=== PATIENT | female | born 1970 | race Native Hawaiian/Other Pacific Islander ===

== ENCOUNTER 2018-04-16 08:01 | Emergency (ER) | payer BC ==
[2018-04-16 08:05] VITALS: BP 148/82; PULSE 66; RESP 18; TEMP 98.3
--- NOTE | 2018-04-16 08:16 | ED ---
General Adult HPI - General Chief complaint: Skin/Abscess/Foreign Body Stated complaint: swollen lip Time Seen by Provider: 04/16/18 08:06 Source: patient, RN notes reviewed Mode of arrival: ambulatory Limitations: no limitations - History of Present Illness Initial comments: Patient 47-year-old female presenting to the emergency room today with a chief complaint of swelling to the left side of the upper lip that started yesterday morning. Patient states that she woke up and there was a small white head which she popped and was able to get some drainage out of. She states as the day went on the left side of the upper lip became more swollen. She does admit that she went to bed hoping that when she would wake up the swelling would be improved. She states swelling to same at this time. She states she's never had anything similar to this in the past. She denies any other home medications other than Vicodin that she uses when needed. Patient denies any other complaints or symptoms. Patient denies any recent fever, chills, shortness of breath, chest pain, back pain, abdominal pain, nausea or vomiting, headaches or visual changes, or any other complaints. - Related Data Home Medications Medication Instructions Recorded Confirmed HYDROcodone/APAP 7.5-325MG [[place] 1 tab PO Q6HR PRN 07/16/15 07/18/15 7.5-325] Previous Rx's Medication Instructions Recorded Hydrocodone/Acetaminophen 1 tab PO Q4HR PRN #30 tab 07/18/15 [Hydrocodone/Acetaminophen 7.5-300] Magnesium Hydroxide [Milk of 30 ml PO Q24H PRN #30 ml 07/18/15 Magnesia Concentrate] Sulfamethox-Tmp 800-160Mg [Bactrim 1 tab PO Q12HR #20 tab 04/16/18 DS 800-160 mg] Allergies Allergy/AdvReac Type Severity Reaction Status Date / Time No Known Allergies Allergy Verified 04/16/18 08:05 Review of Systems ROS Statement: Those systems with pertinent positive or pertinent negative responses have been documented in the HPI. ROS Other: All systems not noted in ROS Statement are negative. Past Medical History Past Medical History: Blood Disorder Additional Past Medical History / Comment(s): Back Pain, Anemia, gall stones. Obstetric history: She had 4 vaginal deliveries, her youngest is 20 years old. She is now unexpectedly and her first visit will be in 10 days. History of Any Multi-Drug Resistant Organisms: None Reported Past Surgical History: No Surgical Hx Reported Additional Past Surgical History / Comment(s): ELECTIVE . Patient reports 4 pregnancies resulting in live births this is a fifth Past Anesthesia/Blood Transfusion Reactions: No Reported Reaction Additional Past Anesthesia/Blood Transfusion Reaction / Comment(s): no blood transfusion Past Psychological History: No Psychological Hx Reported Smoking Status: Never smoker Past Alcohol Use History: None Reported Past Drug Use History: None Reported - Past Family History Father Family Medical History: Blood Disorder Additional Family Medical History / Comment(s): father with Anemia, stomach cancer Mother Family Medical History: Diabetes Mellitus, Hypertension Additional Family Medical History / Comment(s): mini strokes, General Exam - General Exam Comments Initial Comments: General: The patient is awake and alert, in no distress, and does not appear acutely ill. Eye: There is normal conjunctiva bilaterally. No signs of icterus. Ears, nose, mouth and throat: There are moist mucous membranes and no oral lesions. Neck: The neck is supple, there is no tenderness or JVD. Musculoskeletal: Normal ROM, no tenderness. Neurological: A&O x 3. CN II-XII intact, There are no obvious motor or sensory deficits. Coordination appears grossly intact. Speech is normal. Skin: Skin is warm and dry and no rashes or lesions are noted. Patient does have abscess to the left side of the upper lip. There is a ulcerated area centrally. There is no fluctuant head. Psychiatric: Cooperative, appropriate mood & affect, normal judgment. Limitations: no limitations Course Vital Signs 04/16/18 08:02 Temperature 98.3 F Pulse Rate 66 Respiratory 18 Rate Blood Pressure 148/82 O2 Sat by Pulse 97 Oximetry Medical Decision Making - Medical Decision Making Patient does have abscess to the left side of the upper lip. There is some mild swelling. There is no fluctuant head to drain. Patient was able to drain some of the area yesterday. She be started on antibiotics. She is advised warm compresses. Advised follow family physician in the next 2 days return here to emergency room symptoms increase or worsen. Disposition Clinical Impression: Abscess of lip Disposition: HOME SELF-CARE Condition: Good Instructions: Abscess (ED) Additional Instructions: Please use medication as discussed. Please continue warm compresses as discussed. Please follow-up with family doctor in the next 2 days of symptoms have not improved. Please return to emergency room if the symptoms increase or worsen or for any other concerns. Prescriptions: Sulfamethox-Tmp 800-160Mg [Bactrim DS 800-160 mg] 1 tab PO Q12HR #20 tab Is patient prescribed a controlled substance at d/c from ED?: No Referrals: Harsh Layne MD [Primary Care Provider] - 1-2 days Time of Disposition: 08:15
== END 2018-04-16 08:57 | disposition home or self-care (01) ==
LOC: EC 08:01
DX: K13.0 Diseases of lips (principal)
CPT/HCPCS: 99283

== ENCOUNTER 2019-10-11 23:50 | Emergency (ER) | payer BC ==
[2019-10-12 00:51] LABS: Basophils # (A) 0.1 k/uL (0-0.2); Basophils % (A) 1 %; Eosinophils # (A) 0.4 k/uL (0-0.7); Eosinophils % (A) 7 %; HCT 40.7 % (34.0-46.0); HGB 12.9 gm/dL (11.4-16.0); Lymphocytes # (A) 1.8 k/uL (1.0-4.8); Lymphocytes % (A) 29 %; MCH 28.9 pg (25.0-35.0); MCHC 31.7 g/dL (31.0-37.0); Mean Platelet Volume 8.1; Monocytes # (A) 0.3 k/uL (0-1.0); Monocytes % (A) 5 %; Neutrophils # (A) 3.5 k/uL (1.3-7.7); Neutrophils % (A) 56 %; Platelet Count 296 k/uL (150-450); RBC 4.47 m/uL (3.80-5.40); RDW 12.9 % (11.5-15.5); WBC 6.2 k/uL (3.8-10.6)
[2019-10-12 01:03] LABS: D-Dimer 0.4 mg/L FEU (<0.60); INR 0.9 (<1.2); Partial Thromboplastin Time 23.4 sec (22.0-30.0); Prothrombin Time 9.6 sec (9.0-12.0)
--- NOTE | 2019-10-12 01:04 | ED ---
Chest Pain HPI - General Chief Complaint: Chest Pain Stated Complaint: Chest/Back Pain Time Seen by Provider: 10/12/19 00:23 Source: patient Mode of arrival: ambulatory Limitations: no limitations - History of Present Illness Initial Comments: Mady Das is a pleasant 49-year-old female who presents to the ER today for right-sided chest wall pain. Patient reports that she's had pain in the right- sided chest wall for a couple of days, she states is progressively worsening. She noticed a rash that developed on her breast very tender. Initially she thought it was a heat rash however the amount of discomfort made her concerned. Patient denies any pleuritic chest pain or shortness of breath. Denies any cardiac history. - Related Data Previous Rx's Medication Instructions Recorded Sulfamethox-Tmp 800-160Mg [Bactrim 1 tab PO Q12HR #20 tab 04/16/18 DS 800-160 mg] valACYclovir [Valtrex] 1,000 mg PO TID #21 tab 10/12/19 Allergies Allergy/AdvReac Type Severity Reaction Status Date / Time No Known Allergies Allergy Verified 10/12/19 00:10 Review of Systems ROS Statement: Those systems with pertinent positive or pertinent negative responses have been documented in the HPI. ROS Other: All systems not noted in ROS Statement are negative. EKG Findings - EKG Comments: EKG Findings:: EKG was obtained due to complaint of chest pain, EKG obtained at 12:20 AM, rate is 71 rhythm sinus is normal axis, normal intervals there are no acute ST elevations or depressions no evidence of acute ischemia or infarction Past Medical History Past Medical History: Blood Disorder Additional Past Medical History / Comment(s): Back Pain, Anemia, gall stones. History of Any Multi-Drug Resistant Organisms: MRSA Date of last positivie culture/infection: 12/14/18 MDRO Source:: Nasal Culture Past Surgical History: No Surgical Hx Reported Additional Past Surgical History / Comment(s): ELECTIVE . Patient reports 4 pregnancies resulting in live births this is a fifth Past Anesthesia/Blood Transfusion Reactions: No Reported Reaction Additional Past Anesthesia/Blood Transfusion Reaction / Comment(s): no blood transfusion Past Psychological History: No Psychological Hx Reported Smoking Status: Never smoker Past Alcohol Use History: None Reported Past Drug Use History: None Reported - Past Family History Father Family Medical History: Blood Disorder Additional Family Medical History / Comment(s): father with Anemia, stomach cancer Mother Family Medical History: Diabetes Mellitus, Hypertension Additional Family Medical History / Comment(s): mini strokes, General Exam - General Exam Comments Initial Comments: Physical Exam GENERAL: Patient is well-developed and well-nourished. Patient is nontoxic and well- hydrated and is in no distress. HENT: Normocephalic, Atraumatic. EYES: PERRL, EOMI PULMONARY: Unlabored respirations. No audible rales rhonchi or wheezing was noted. CARDIOVASCULAR: There is a regular rate and rhythm without any murmurs gallops or rubs. ABDOMEN: Soft and nontender with normal bowel sounds. SKIN: Vesicular rash under the right breast in approximately the T5 dermatome, pain radiating around the back following this dermatomal pattern : Deferred NEUROLOGIC: Patient is alert and oriented x3. Moving all extremities spontaneously MUSCULOSKELETAL: Normal extremities with adequate strength and full range of motion. No lower extremity swelling or edema. No calf tenderness. PSYCHIATRIC: Normal psychiatric evaluation. Limitations: no limitations Course Vital Signs 10/12/19 10/12/19 00:06 00:42 Temperature 98.6 F Pulse Rate 72 74 Respiratory 16 18 Rate Blood Pressure 146/82 119/72 O2 Sat by Pulse 98 99 Oximetry Chest Pain MDM - MDM Patient was seen and evaluated, history was obtained from the patient, history and physical exam are concerning for a shingles rash, patient will be started on Valtrex and given Tylenol 3 for treatment Patient was advised to follow-up with primary care for repeat labs as this medication can be hepatotoxic Labs are unremarkable, d-dimer and troponin not elevated Patient will be discharged home with Valtrex, a Tylenol 3 starter pack she did not receive any pain medication emergency department she would like to drive herself home safely Disposition Clinical Impression: Shingles Disposition: HOME SELF-CARE Condition: Stable Instructions (If sedation given, give patient instructions): Shingles (ED) Prescriptions: valACYclovir [Valtrex] 1,000 mg PO TID #21 tab Is patient prescribed a controlled substance at d/c from ED?: No Referrals: aTta Lambert DO [Primary Care Provider] - 1-2 days
--- NOTE | 2019-10-12 01:15 | XR ---
EXAMINATION TYPE: XR chest 2V DATE OF EXAM: 10/12/2019 COMPARISON: NONE HISTORY: Chest pain TECHNIQUE: 2 views FINDINGS: Heart and mediastinum are normal. Lungs are clear. Diaphragm is normal. Bony thorax is inta ct. There are chest leads. IMPRESSION: Normal chest.
[2019-10-12 01:16] LABS: ALT 18 U/L (4-34); AST 20 U/L (14-36); African American GFR (CKD) >90 (>60 ml/min/1.73 sqM); Albumin 4.4 g/dL (3.5-5.0); Alkaline Phosphatase 139 U/L (38-126); Anion Gap 12 mmol/L; Blood Urea Nitrogen 10 mg/dL (7-17); Calcium 9.8 mg/dL (8.4-10.2); Carbon Dioxide 21 mmol/L (22-30); Chloride 103 mmol/L (98-107); Glucose 338 mg/dL (74-99); Magnesium 2.1 mg/dL (1.6-2.3); Non-African American GFR(CKD) >90 (>60 ml/min/1.73 sqM); Potassium 3.7 mmol/L (3.5-5.1); Sodium 136 mmol/L (137-145); Total Bilirubin 0.4 mg/dL (0.2-1.3); Total Protein 7.8 g/dL (6.3-8.2)
[2019-10-12] MEDS ORDERED: ACET/COD 300 MG/30 MG STARTER PACK 6 TAB BTL PO STA (01:16)
[2019-10-12] MEDS ORDERED: valACYclovir 500 MG TAB PO ONE (01:30)
[2019-10-12] MEDS ORDERED: Acetaminophen-Codeine 300-30mg TAB PO STA (01:36)
[2019-10-13 09:46] VITALS: BP 118/67; PULSE 74; RESP 18; TEMP 98.3
== END 2019-10-12 02:05 | disposition home or self-care (01) ==
LOC: EC 23:50
DX: B02.9 Zoster without complications (principal); R07.89 Other chest pain; Z86.14 Personal history of Methicillin resistant Staphylococcus aureus infection
CPT/HCPCS: 36415; 71046; 80053; 83735; 84484; 85025; 85379; 85610; 85730; 93005; 99285

== ENCOUNTER 2020-01-13 15:02 | Emergency (ER) | payer BC, OTHER ==
[2020-01-13 15:43] LABS: Glucose,Whole Blood 93 mg/dL (75-99)
[2020-01-13 15:45] LABS: Basophils % (A) 0 %; Eosinophils # (A) 0.2 k/uL (0-0.7); Eosinophils % (A) 3 %; HCT 45.6 % (34.0-46.0); HGB 15.1 gm/dL (11.4-16.0); Lymphocytes # (A) 1.8 k/uL (1.0-4.8); Lymphocytes % (A) 19 %; MCH 29.9 pg (25.0-35.0); MCHC 33.1 g/dL (31.0-37.0); MCV 90.4 fL (80.0-100.0); Mean Platelet Volume 7.5; Monocytes # (A) 0.3 k/uL (0-1.0); Monocytes % (A) 4 %; Neutrophils # (A) 6.7 k/uL (1.3-7.7); Neutrophils % (A) 73 %; Platelet Count 320 k/uL (150-450); RBC 5.05 m/uL (3.80-5.40); RDW 12.8 % (11.5-15.5); WBC 9.1 k/uL (3.8-10.6)
[2020-01-13 15:59] LABS: Appearance,Urine Clear (Clear); Bilirubin,Urine Negative (Negative); Blood,Urine Negative (Negative); Color,Urine Yellow; Glucose,Urine (UA) 4+ (Negative); Leukocyte Esterase,Urine Negative (Negative); Nitrite,Urine Negative (Negative); PH, Urine 5.5 (5.0-8.0); Protein,Urine Trace (Negative); Urobilinogen,Urine <2.0 mg/dL (<2.0)
[2020-01-13] MEDS ORDERED: ONDANSETRON 4 MG/2 ML VIAL IVP STA (16:02)
[2020-01-13] MEDS ORDERED: PANTOPRAZOLE 40 MG/10 ML VIAL IVP STA (16:02)
[2020-01-13 16:03] LABS: ALT 17 U/L (4-34); AST 24 U/L (14-36); African American GFR (CKD) >90 (>60 ml/min/1.73 sqM); Albumin 4.8 g/dL (3.5-5.0); Alkaline Phosphatase 105 U/L (38-126); Amylase 42 U/L (30-110); Anion Gap 14 mmol/L; Blood Urea Nitrogen 13 mg/dL (7-17); Calcium 10.1 mg/dL (8.4-10.2); Carbon Dioxide 21 mmol/L (22-30); Chloride 104 mmol/L (98-107); Glucose 105 mg/dL (74-99); Non-African American GFR(CKD) >90 (>60 ml/min/1.73 sqM); Potassium 4.3 mmol/L (3.5-5.1); Sodium 139 mmol/L (137-145); Total Bilirubin 0.8 mg/dL (0.2-1.3); Total Protein 8.7 g/dL (6.3-8.2)
[2020-01-13 16:08] LABS: Ketones,Urine 4+ (Negative)
--- NOTE | 2020-01-13 16:48 | XR ---
EXAMINATION TYPE: XR abdomen acute w cxr DATE OF EXAM: 01/13/2020 COMPARISON: 05/30/2015 HISTORY: Nausea and vomiting TECHNIQUE: 4 views FINDINGS: Heart and mediastinum are normal. Lungs are clear. Diaphragm is normal. Bowel gas pattern i s normal. There is no sign of intestinal obstruction or pneumoperitoneum. Fecal pattern is normal. Th ere are phleboliths in the pelvis on the left side. There is no evidence of a mass. There are no path ologic calcifications over the kidneys. IMPRESSION: Normal chest. Nonacute abdomen. No adverse change.
[2020-01-13] MEDS ORDERED: SODIUM CHLORIDE 0.9% 1,000 ML IV ONE (17:56)
--- NOTE | 2020-01-13 19:10 | ED ---
Abdominal Pain HPI - General Chief Complaint: Abdominal Pain Stated Complaint: Nausea,Dizziness,Vomiting Time Seen by Provider: 01/13/20 15:18 Source: patient Mode of arrival: ambulatory Limitations: no limitations - History of Present Illness Initial Comments: This is a 49-year-old type II diabetic who is [id number] presented to the emergency department today for chief complaint of possible medication reaction. Patient states that she was supposed to start oxympic about a year ago, it was prescribed as a weekly injection however she did not want to do this so she didnt do it. She saw her pcp in October and was instead prescribed Synjardy an oral medications that she has been taking without side effects. Patient states that she put herself on ozympic Wednesday of this past week giving one SQ injection because she thought it would further help her DM management, She states it was the medications that she has had for a year. Patient states that since his injection she has had nausea diarrhea vomiting cramping of the abdomen diffusely and at times lightheaded. She states that her stools look slightly darker than normal. She denies any localizing abdominal pain. She denies any alcohol abuse bright red stools. Patient denies any hematemesis. Patient states she placed she is having a medication reaction. Patietn states that she hasnt been able to eat much since Wednesday secondary to the above symptoms. Patient denies chest pain, SOB, headaches, fevers ,or URI symptoms. She appears nontoxic on arrival but did have 1 episode of vomiting durin ghistory taking. - Related Data Previous Rx's Medication Instructions Recorded Sulfamethox-Tmp 800-160Mg [Bactrim 1 tab PO Q12HR #20 tab 04/16/18 DS 800-160 mg] valACYclovir [Valtrex] 1,000 mg PO TID #21 tab 10/12/19 Ondansetron Odt [Zofran Odt] 4 mg PO Q8HR PRN 3 Days #9 tab 01/13/20 Allergies Allergy/AdvReac Type Severity Reaction Status Date / Time No Known Allergies Allergy Verified 01/13/20 15:11 Review of Systems ROS Statement: Those systems with pertinent positive or pertinent negative responses have been documented in the HPI. ROS Other: All systems not noted in ROS Statement are negative. Past Medical History Past Medical History: Blood Disorder Additional Past Medical History / Comment(s): Back Pain, Anemia, gall stones. Obstetric history: She had 4 vaginal deliveries, her youngest is 20 years old. She is now unexpectedly and her first visit will be in 10 days. History of Any Multi-Drug Resistant Organisms: MRSA Date of last positivie culture/infection: 12/14/18 MDRO Source:: Nasal Culture Past Surgical History: No Surgical Hx Reported Additional Past Surgical History / Comment(s): ELECTIVE . Patient reports 4 pregnancies resulting in live births this is a fifth Past Anesthesia/Blood Transfusion Reactions: No Reported Reaction Additional Past Anesthesia/Blood Transfusion Reaction / Comment(s): no blood transfusion Past Psychological History: No Psychological Hx Reported Smoking Status: Never smoker Past Alcohol Use History: None Reported Past Drug Use History: None Reported - Past Family History Father Family Medical History: Blood Disorder Additional Family Medical History / Comment(s): father with Anemia, stomach cancer Mother Family Medical History: Diabetes Mellitus, Hypertension Additional Family Medical History / Comment(s): mini strokes, General Exam - General Exam Comments Initial Comments: General: The patient is awake and alert, in no distress Eye: Pupils are equal, round and reactive to light, extra-ocular movements are intact. No nystagmus. There is normal conjunctiva bilaterally. No signs of icterus. Ears, nose, mouth and throat: There are dry mucous membranes and no oral lesions. Neck: The neck is supple, there is no tenderness or JVD. Cardiovascular: There is a regular rate and rhythm. No murmur, rub or gallop is appreciated. Respiratory: Lungs are clear to auscultation, respirations are non-labored, breath sounds are equal. No wheezes, stridor, rales, or rhonchi. Gastrointestinal: Soft, non-distended, non-tender abdomen without masses or organomegaly noted. There is no rebound or guarding present. Musculoskeletal: Normal ROM, no tenderness. Strength 5/5. Sensation intact. Pulses equal bilaterally 2+. Neurological: A&O x 3. CN II-XII intact grossy, There are no obvious motor or sensory deficits. Coordination appears grossly intact. Speech is normal. Skin: Skin is warm and dry and no rashes or lesions are noted. Psychiatric: Cooperative, appropriate mood & affect, normal judgment. Limitations: no limitations Course Vital Signs 01/13/20 01/13/20 01/13/20 15:07 18:28 19:21 Temperature 97.8 F 97.7 F Pulse Rate 91 86 74 Respiratory 18 16 18 Rate Blood Pressure 123/77 124/76 129/74 O2 Sat by Pulse 98 99 97 Oximetry Procedures - [place] Protocol (Time Out) Nurse: Michell Matias Medical Decision Making - Medical Decision Making Labs reviewed by attending provider Dr. Rhodes, at this time patient nausea controlled, felt ketosis is secondary to starvation. Patient has elevation of gap, which is felt to be a due to starvation rather than elevated blood glucose. patient acetone (-). VS stable she appears nontoxic. Patient hydrated and state she is ready to go home. My attending and I feel symptoms most likely secondary to medications taken wednesdayvne history. No localizing abdominal pain, fevers. Patient agreeble to discharge with discontinuation of medication and pcp f/u. Val prescribed outpatient and she was discharged [facility]. - Lab Data Result diagrams: 01/13/20 15:27 01/13/20 15:27 Lab Results 01/13/20 01/13/20 01/13/20 Range/Units 15:27 15:27 15:27 WBC 9.1 (3.8-10.6) k/uL RBC 5.05 (3.80-5.40) m/uL Hgb 15.1 (11.4-16.0) gm/dL Hct 45.6 (34.0-46.0) % MCV 90.4 (80.0-100.0) fL MCH 29.9 (25.0-35.0) pg MCHC 33.1 (31.0-37.0) g/dL RDW 12.8 (11.5-15.5) % Plt Count 320 (150-450) k/uL Neutrophils % 73 % Lymphocytes % 19 % Monocytes % 4 % Eosinophils % 3 % Basophils % 0 % Neutrophils # 6.7 (1.3-7.7) k/uL Lymphocytes # 1.8 (1.0-4.8) k/uL Monocytes # 0.3 (0-1.0) k/uL Eosinophils # 0.2 (0-0.7) k/uL Basophils # 0.0 (0-0.2) k/uL Sodium 139 (137-145) mmol/L Potassium 4.3 (3.5-5.1) mmol/L Chloride 104 (98-107) mmol/L Carbon Dioxide 21 L (22-30) mmol/L Anion Gap 14 mmol/L BUN 13 (7-17) mg/dL Creatinine 0.66 (0.52-1.04) mg/dL Est GFR (CKD-EPI)AfAm >90 (>60 ml/min/1.73 sqM) Est GFR (CKD-EPI)NonAf >90 (>60 ml/min/1.73 sqM) Glucose 105 H (74-99) mg/dL POC Glucose (mg/dL) (75-99) mg/dL POC Glu [employer] ID Calcium 10.1 (8.4-10.2) mg/dL Total Bilirubin 0.8 (0.2-1.3) mg/dL AST 24 (14-36) U/L ALT 17 (4-34) U/L Alkaline Phosphatase 105 (38-126) U/L Total Protein 8.7 H (6.3-8.2) g/dL Albumin 4.8 (3.5-5.0) g/dL Amylase 42 (30-110) U/L Lipase 54 (23-300) U/L Urine Color Yellow Urine Appearance Clear (Clear) Urine pH 5.5 (5.0-8.0) Ur Specific [place] 1.050 H (1.001-1.035) Urine Protein Trace H (Negative) Urine Glucose (UA) 4+ H (Negative) Urine Ketones 4+ H (Negative) Urine Blood Negative (Negative) Urine Nitrite Negative (Negative) Urine Bilirubin Negative (Negative) Urine Urobilinogen <2.0 (<2.0) mg/dL Ur Leukocyte Esterase Negative (Negative) Stool Occult Blood (Negative) Acetone, Qual (Negative) 01/13/20 01/13/20 01/13/20 Range/Units 15:41 17:39 18:27 WBC (3.8-10.6) k/uL RBC (3.80-5.40) m/uL Hgb (11.4-16.0) gm/dL Hct (34.0-46.0) % MCV (80.0-100.0) fL MCH (25.0-35.0) pg MCHC (31.0-37.0) g/dL RDW (11.5-15.5) % Plt Count (150-450) k/uL Neutrophils % % Lymphocytes % % Monocytes % % Eosinophils % % Basophils % % Neutrophils # (1.3-7.7) k/uL Lymphocytes # (1.0-4.8) k/uL Monocytes # (0-1.0) k/uL Eosinophils # (0-0.7) k/uL Basophils # (0-0.2) k/uL Sodium (137-145) mmol/L Potassium (3.5-5.1) mmol/L Chloride (98-107) mmol/L Carbon Dioxide (22-30) mmol/L Anion Gap mmol/L BUN (7-17) mg/dL Creatinine (0.52-1.04) mg/dL Est GFR (CKD-EPI)AfAm (>60 ml/min/1.73 sqM) Est GFR (CKD-EPI)NonAf (>60 ml/min/1.73 sqM) Glucose (74-99) mg/dL POC Glucose (mg/dL) 93 (75-99) mg/dL POC Glu Media [employer]er ID [place], Michell Calcium (8.4-10.2) mg/dL Total Bilirubin (0.2-1.3) mg/dL AST (14-36) U/L ALT (4-34) U/L Alkaline Phosphatase (38-126) U/L Total Protein (6.3-8.2) g/dL Albumin (3.5-5.0) g/dL Amylase (30-110) U/L Lipase (23-300) U/L Urine Color Urine Appearance (Clear) Urine pH (5.0-8.0) Ur Specific [place] (1.001-1.035) Urine Protein (Negative) Urine Glucose (UA) (Negative) Urine Ketones (Negative) Urine Blood (Negative) Urine Nitrite (Negative) Urine Bilirubin (Negative) Urine Urobilinogen (<2.0) mg/dL Ur Leukocyte Esterase (Negative) Stool Occult Blood Negative (Negative) Acetone, Qual Negative (Negative) Disposition Clinical Impression: Nausea & vomiting Disposition: HOME SELF-CARE Condition: Good Instructions (If sedation given, give patient instructions): General Allergic Reaction (ED) Additional Instructions: Please use medication as discussed. Please follow-up with family doctor in the next 2 day. Discontinue injections. Please return to emergency room if the symptoms increase or worsen or for any other concerns. Prescriptions: Ondansetron Odt [Zofran Odt] 4 mg PO Q8HR PRN 3 Days #9 tab PRN Reason: Nausea Is patient prescribed a controlled substance at d/c from ED?: No Referrals: Tata Lambert DO [Primary Care Provider] - 1-2 days Time of Disposition: 19:09
[2020-01-13 19:24] VITALS: BP 129/74; PULSE 74; RESP 18; TEMP 97.7
== END 2020-01-13 19:24 | disposition home or self-care (01) ==
LOC: EC 15:02
DX: R11.2 Nausea with vomiting, unspecified (principal); E11.9 Type 2 diabetes mellitus without complications; Z79.84 Long term (current) use of oral hypoglycemic drugs
CPT/HCPCS: 36415; 80053; 82150; 82009; 83690; 85025; 82272; 81003; 74022; 99284; 96374; 96375; 96361; J2405; C9113

== ENCOUNTER 2020-01-14 21:06 | Inpatient (IN) | payer OTHER ==
[2020-01-14] MEDS ORDERED: METOCLOPRAMIDE 5 MG/ML 2 ML VIAL IVP STA (21:29)
[2020-01-14] MEDS ORDERED: SODIUM CHLORIDE 0.9% 1,000 ML IV STA ×2 (21:29)
[2020-01-14 21:57] LABS: Basophils % (A) 0 %; Eosinophils # (A) 0.1 k/uL (0-0.7); Eosinophils % (A) 0 %; HCT 48.1 % (34.0-46.0); HGB 15.5 gm/dL (11.4-16.0); Hypochromasia Moderate; Lymphocytes # (A) 1.4 k/uL (1.0-4.8); Lymphocytes % (A) 8 %; MCH 30.4 pg (25.0-35.0); MCHC 32.2 g/dL (31.0-37.0); MCV 94.5 fL (80.0-100.0); Mean Platelet Volume 7.8; Monocytes # (A) 0.4 k/uL (0-1.0); Monocytes % (A) 2 %; Neutrophils # (A) 15.2 k/uL (1.3-7.7); Neutrophils % (A) 89 %; Platelet Count 394 k/uL (150-450); WBC 17.2 k/uL (3.8-10.6)
[2020-01-14 21:59] LABS: Appearance,Urine Clear (Clear); Bilirubin,Urine Negative (Negative); Blood,Urine Trace (Negative); Color,Urine Light Yellow; Glucose,Urine (UA) 4+ (Negative); Hyaline Casts,Urine 1 /lpf (0-2); Leukocyte Esterase,Urine Negative (Negative); Mucus,Urine Rare /hpf; Nitrite,Urine Negative (Negative); PH, Urine 5.5 (5.0-8.0); Protein,Urine 1+ (Negative); RBC,Urine 1 /hpf (0-5); Specific Gravity,Urine 1.024 (1.001-1.035); Squamous Epithelial Cell,Urine 1 /hpf (0-4); Urobilinogen,Urine <2.0 mg/dL (<2.0); WBC,Urine 1 /hpf (0-5)
[2020-01-14 22:07] LABS: ALT 17 U/L (4-34); AST 23 U/L (14-36); African American GFR (CKD) >90 (>60 ml/min/1.73 sqM); Albumin 5.3 g/dL (3.5-5.0); Alkaline Phosphatase 122 U/L (38-126); Amylase 48 U/L (30-110); Anion Gap 25 mmol/L; Blood Urea Nitrogen 10 mg/dL (7-17); Calcium 10.5 mg/dL (8.4-10.2); Chloride 109 mmol/L (98-107); Glucose 171 mg/dL (74-99); Non-African American GFR(CKD) 86 (>60 ml/min/1.73 sqM); Potassium 5.3 mmol/L (3.5-5.1); Sodium 140 mmol/L (137-145); Total Bilirubin 0.7 mg/dL (0.2-1.3); Total Protein 9.6 g/dL (6.3-8.2)
[2020-01-14 22:13] LABS: Carbon Dioxide 6 mmol/L (22-30)
[2020-01-14 22:15] LABS: Ketones,Urine 4+ (Negative)
[2020-01-14] MEDS ORDERED: SODIUM CHLORIDE 0.9% 1,000 ML IV ONE (22:31)
[2020-01-14 22:32] LABS: ABG Base Excess -24.6 mmol/L; ABG PCO2 20 mmHg (35-45); ABG PO2 115 mmHg (83-108); ABG TCO2 6 mmol/L (19-24); Allen Test Performed? Yes
[2020-01-14 22:34] LABS: ABG HCO3 6 mmol/L (21-25); ABG PH 7.07 (7.35-7.45)
--- NOTE | 2020-01-14 22:35 | CT ---
EXAMINATION TYPE: CT abdomen pelvis w con DATE OF EXAM: 01/14/2020 COMPARISON: None HISTORY: nausea, vomitting CT DLP: 537.3 mGycm Automated exposure control for dose reduction was used. CONTRAST: Performed with IV Contrast, patient injected with 100 mL of Isovue 300. Lung bases are clear. There is no pleural effusion. Heart size is normal. There is no pericardial eff usion. Liver spleen pancreas stomach appear intact. Bile ducts are not dilated. Gallbladder appears absent. There is no adrenal mass. Kidneys show satisfactory contrast opacification. There is no hydronephrosi s. The ureters are not dilated. Bladder distends smoothly. Uterus appears normal. There is no free fl uid in the pelvis. There is no evidence of a pelvic mass. There is no inguinal hernia. There are sigm oid diverticula. There is no sign of diverticulitis. There is small appendix that is lateral and inferior. There is no mesenteric edema. There is no ascit es or free air. There is no bowel obstruction. The lumbar vertebra have fairly normal alignment. There is L5 spondylolysis without spondylolisthesis . There is no compression fracture. Bony pelvis is intact. Hip joints appear intact. IMPRESSION: There is some colonic diverticulosis without diverticulitis. Normal appendix. No acute abnormality wi thin the abdomen pelvis.
[2020-01-14] MEDS ORDERED: D5-0.45% NACL WITH KCL 20MEQ/L 1,000 ML IV SCH (22:45)
[2020-01-14] MEDS ORDERED: INSULIN REGULAR 100 UNIT in SODIUM CHLORIDE 0.9% 100 ML IV SCH (22:45)
--- NOTE | 2020-01-14 22:47 | ED ---
Nausea/Vomiting/Diarrhea HPI <Madi Rhodes - Last Filed: 01/14/20 22:48> - General Source: patient Mode of arrival: ambulatory <Catrachita Chacon - Last Filed: 01/14/20 23:07> - General Chief complaint: Nausea/Vomiting/Diarrhea Stated complaint: Vomiting Time Seen by Provider: 01/14/20 21:29 - History of Present Illness Initial comments: 49yo female with history of DMII non insulin dependent presenting for cc of vomiting x 5 days. Patient states that she has been vomiting since she injected herself with Ozempic on Wednesday. She states she was not told to do so and has had the pens for over 1 year. She states that she was prescribed synjardy and was not to take the ozempic. Patient states that later that night she developed cramping, diarrhea, vomiting. states it has been basically constant since. SHe presented yesterday was hydrated and discharged (patient preference). Patient states that the vomiting returned and was not controlled with out oral odt zofran. when she continued to feel unwell she presented to the ER. On arrival patient vomiting, HR elevated. Patient BP stable. (Catrachita Chacon) - Related Data Home Medications Medication Instructions Recorded Confirmed Empagliflozin/Metformin HCl 1 tab PO BID 01/14/20 01/14/20 [Synjardy 12.5-1,000 mg Tablet] Semaglutide [Ozempic] 1 mg SQ SA 01/14/20 01/14/20 Allergies Allergy/AdvReac Type Severity Reaction Status Date / Time No Known Allergies Allergy Verified 01/14/20 22:30 Review of Systems ROS Other: All systems not noted in ROS Statement are negative. <aMdi Rhodes - Last Filed: 01/14/20 22:48> ROS Other: All systems not noted in ROS Statement are negative. <Catrachita Chacon - Last Filed: 01/14/20 23:07> ROS Statement: Those systems with pertinent positive or pertinent negative responses have been documented in the HPI. Past Medical History Past Medical History: Blood Disorder, Diabetes Mellitus Additional Past Medical History / Comment(s): Back Pain, Anemia, gall stones History of Any Multi-Drug Resistant Organisms: MRSA Date of last positivie culture/infection: 12/14/18 MDRO Source:: Nasal Culture Past Surgical History: No Surgical Hx Reported Additional Past Surgical History / Comment(s): ELECTIVE . Patient reports 4 pregnancies resulting in live births this is a fifth Past Anesthesia/Blood Transfusion Reactions: No Reported Reaction Additional Past Anesthesia/Blood Transfusion Reaction / Comment(s): no blood transfusion Past Psychological History: No Psychological Hx Reported Smoking Status: Never smoker Past Alcohol Use History: None Reported Past Drug Use History: None Reported - Past Family History Father Family Medical History: Blood Disorder Additional Family Medical History / Comment(s): father with Anemia, stomach cancer Mother Family Medical History: Diabetes Mellitus, Hypertension Additional Family Medical History / Comment(s): mini strokes, <Catrachita Chacon - Last Filed: 01/14/20 23:07> General Exam <Catrachita Chacon - Last Filed: 01/14/20 23:07> - General Exam Comments Initial Comments: General: The patient is awake and alert, appears to feel unwell Eye: Pupils are equal, round and reactive to light, extra-ocular movements are intact. No nystagmus. There is normal conjunctiva bilaterally. No signs of icterus. Ears, nose, mouth and throat: There are moist mucous membranes and no oral lesions. Neck: The neck is supple, there is no tenderness or JVD. Cardiovascular: There is a increased rate and regular rhythm. No murmur, rub or gallop is appreciated. Respiratory: Lungs are clear to auscultation, respirations are non-labored, blayne ath sounds are equal. No wheezes, stridor, rales, or rhonchi. Gastrointestinal: Soft, non-distended, diffuse moderate abdominal pain to palpation of the abdomen, abdomen without masses or organomegaly noted. There is no rebound or guarding present. Musculoskeletal: Normal ROM, no tenderness. Strength 5/5. Sensation intact. Radial pulses equal bilaterally 2+. Neurological: A&O x 3. CN II-XII intact grossly, There are no obvious motor or sensory deficits. Coordination appears grossly intact. Speech is normal. Skin: Skin is warm and dry and no rashes or lesions are noted. No LE edema. Psychiatric: Cooperative, appropriate mood & affect, normal judgment. (Catrachita Chacon) Course <Madi Rhodes - Last Filed: 01/14/20 22:48> Vital Signs 01/14/20 01/14/20 21:20 22:30 Temperature 98.7 F Pulse Rate 115 H 111 H Respiratory 18 24 Rate Blood Pressure 119/61 137/69 O2 Sat by Pulse 99 100 Oximetry - Reevaluation(s) Reevaluation #1: 01/14/20 22:48 Case, test results and ED management were discussed with Dr. Chand (outside cutter hand). He agrees with ICU admission. He also agrees with treatment with insulin IV drip and D5 half-normal saline IV drip. He has no further recommendations at the time. 01/14/20 22:52 Case, test results, ED management and my discussion with Dr. Chand as above were discussed with BHAVNA Montalvo. She accepts ICU admission on behalf of herself and Dr. Bolanos. She has no further recommendations at this time. (Madi Rhodes) Procedures - [place] Protocol (Time Out) Nurse: Skyler Montaño <Catrachita Chacon - Last Filed: 01/14/20 23:07> Medical Decision Making - Lab Data Result diagrams: 01/14/20 21:41 01/14/20 21:41 <Madi Rhodes - Last Filed: 01/14/20 22:48> - Lab Data Result diagrams: 01/14/20 21:41 01/14/20 21:41 <Catrachita Chacon - Last Filed: 01/14/20 23:07> - Medical Decision Making Patient was initially seen by ED BHAVNA Chacon in the emergency department, and I was asked to assist with management of the patient's care. Patient was seen and examined myself. Given the patient's symptoms and laboratory findings, I suspect that her ketoacidosis is likely secondary to diabetic ketoacidosis compounded with dehydration. Patient was started on a regular insulin IV drip, as well as a D5 half-normal saline IV drip. Dr. Chand (outside cutter hand) was consulted from the ED. Patient will be admitted to the ICU. (Madi Rhodes) Patietn presenting with vomiting after ozempic injection wednesday. There is [place] medication reaction that can cause lactic acidosis found to be between synjardy and ozempic. Patient was not instructed to inject ozempic it was an old prescription. Pt vomiting since with abdominal cramping. Patient glucose 177 t umberto. CO2 6. ABG ph 7.07. Acetone +. +4 ketones and glucose. Patient case discussed at length with attending, we feel most likely cause of acidosis is metabolic from vomiting/medication reaction such as lactic acidosis. With +4 glucose cannot r/o DKA. Acid Loader was consulted who is agreeable to a insulin drip at 0.075u/kg/hr. Patient will be given hydration and monitored with repeat laboratory studies on telemetry in the ICU.. Patient is agreeable to admission. (Catrachita Chacon) - Lab Data Lab Results 01/14/20 01/14/20 01/14/20 Range/Units 21:41 21:41 21:41 WBC 17.2 H (3.8-10.6) k/uL RBC 5.10 (3.80-5.40) m/uL Hgb 15.5 (11.4-16.0) gm/dL Hct 48.1 H (34.0-46.0) % MCV 94.5 (80.0-100.0) fL MCH 30.4 (25.0-35.0) pg MCHC 32.2 (31.0-37.0) g/dL RDW 13.0 (11.5-15.5) % Plt Count 394 (150-450) k/uL Neutrophils % 89 % Lymphocytes % 8 % Monocytes % 2 % Eosinophils % 0 % Basophils % 0 % Neutrophils # 15.2 H (1.3-7.7) k/uL Lymphocytes # 1.4 (1.0-4.8) k/uL Monocytes # 0.4 (0-1.0) k/uL Eosinophils # 0.1 (0-0.7) k/uL Basophils # 0.0 (0-0.2) k/uL Hypochromasia Moderate Sample Site ABG pH (7.35-7.45) ABG pCO2 (35-45) mmHg ABG pO2 (83-108) mmHg ABG HCO3 (21-25) mmol/L ABG Total CO2 (19-24) mmol/L ABG O2 Saturation (94-97) % ABG Base Excess mmol/L [place] Test FiO2 % Sodium 140 (137-145) mmol/L Potassium 5.3 H (3.5-5.1) mmol/L Chloride 109 H (98-107) mmol/L Carbon Dioxide 6 L* (22-30) mmol/L Anion Gap 25 mmol/L BUN 10 (7-17) mg/dL Creatinine 0.82 (0.52-1.04) mg/dL Est GFR (CKD-EPI)AfAm >90 (>60 ml/min/1.73 sqM) Est GFR (CKD-EPI)NonAf 86 (>60 ml/min/1.73 sqM) Glucose 171 H (74-99) mg/dL Calcium 10.5 H (8.4-10.2) mg/dL Total Bilirubin 0.7 (0.2-1.3) mg/dL AST 23 (14-36) U/L ALT 17 (4-34) U/L Alkaline Phosphatase 122 (38-126) U/L Total Protein 9.6 H (6.3-8.2) g/dL Albumin 5.3 H (3.5-5.0) g/dL Amylase 48 (30-110) U/L Lipase 87 (23-300) U/L Urine Color Light Yellow Urine Appearance Clear (Clear) Urine pH 5.5 (5.0-8.0) Ur Specific [place] 1.024 (1.001-1.035) Urine Protein 1+ H (Negative) Urine Glucose (UA) 4+ H (Negative) Urine Ketones 4+ H (Negative) Urine Blood Trace H (Negative) Urine Nitrite Negative (Negative) Urine Bilirubin Negative (Negative) Urine Urobilinogen <2.0 (<2.0) mg/dL Ur Leukocyte Esterase Negative (Negative) Urine RBC 1 (0-5) /hpf Urine WBC 1 (0-5) /hpf Ur Squamous Epith Cells 1 (0-4) /hpf Hyaline Casts 1 (0-2) /lpf Urine Mucus Rare H (None) /hpf Acetone, Qual Positive (Negative) 01/14/20 Range/Units 22:26 WBC (3.8-10.6) k/uL RBC (3.80-5.40) m/uL Hgb (11.4-16.0) gm/dL Hct (34.0-46.0) % MCV (80.0-100.0) fL MCH (25.0-35.0) pg MCHC (31.0-37.0) g/dL RDW (11.5-15.5) % Plt Count (150-450) k/uL Neutrophils % % Lymphocytes % % Monocytes % % Eosinophils % % Basophils % % Neutrophils # (1.3-7.7) k/uL Lymphocytes # (1.0-4.8) k/uL Monocytes # (0-1.0) k/uL Eosinophils # (0-0.7) k/uL Basophils # (0-0.2) k/uL Hypochromasia Sample Site rbrach ABG pH 7.07 L* (7.35-7.45) ABG pCO2 20 L (35-45) mmHg ABG pO2 115 H (83-108) mmHg ABG HCO3 6 L* (21-25) mmol/L ABG Total CO2 6 L (19-24) mmol/L ABG O2 Saturation 98.0 H (94-97) % ABG Base Excess -24.6 mmol/L [place] Test Yes FiO2 21 % Sodium (137-145) mmol/L Potassium (3.5-5.1) mmol/L Chloride (98-107) mmol/L Carbon Dioxide (22-30) mmol/L Anion Gap mmol/L BUN (7-17) mg/dL Creatinine (0.52-1.04) mg/dL Est GFR (CKD-EPI)AfAm (>60 ml/min/1.73 sqM) Est GFR (CKD-EPI)NonAf (>60 ml/min/1.73 sqM) Glucose (74-99) mg/dL Calcium (8.4-10.2) mg/dL Total Bilirubin (0.2-1.3) mg/dL AST (14-36) U/L ALT (4-34) U/L Alkaline Phosphatase (38-126) U/L Total Protein (6.3-8.2) g/dL Albumin (3.5-5.0) g/dL Amylase (30-110) U/L Lipase (23-300) U/L Urine Color Urine Appearance (Clear) Urine pH (5.0-8.0) Ur Specific [place] (1.001-1.035) Urine Protein (Negative) Urine Glucose (UA) (Negative) Urine Ketones (Negative) Urine Blood (Negative) Urine Nitrite (Negative) Urine Bilirubin (Negative) Urine Urobilinogen (<2.0) mg/dL Ur Leukocyte Esterase (Negative) Urine RBC (0-5) /hpf Urine WBC (0-5) /hpf Ur Squamous Epith Cells (0-4) /hpf Hyaline Casts (0-2) /lpf Urine Mucus (None) /hpf Acetone, Qual (Negative) Disposition <Madi hRodes - Last Filed: 01/14/20 22:48> Is patient prescribed a controlled substance at d/c from ED?: No Time of Disposition: 23:06 Decision to Admit Reason: Admit from EC Decision Date: 01/14/20 Decision Time: 23:06 <Catrachita Chacon - Last Filed: 01/14/20 23:07> Clinical Impression: DKA (diabetic ketoacidoses), Dehydration, Medication reaction, Metabolic acidosis, Vomiting Disposition: ADMITTED IP TO THIS [facility] Condition: Serious Referrals: Tata Lambert DO [Primary Care Provider] - 1-2 days
[2020-01-14 23:13] LABS: Glucose,Whole Blood 152 mg/dL (75-99)
[2020-01-14 23:52] LABS: Glucose,Whole Blood 148 mg/dL (75-99)
[2020-01-15] MEDS: DEXTROSE 5%-0.45% NACL 1,000 ML IV SCH ×2 (00:08→06:36)
[2020-01-15 00:58] LABS: Glucose,Whole Blood 153 mg/dL (75-99)
[2020-01-15 02:04] LABS: African American GFR (CKD) >90 (>60 ml/min/1.73 sqM); Blood Urea Nitrogen 8 mg/dL (7-17); Chloride 115 mmol/L (98-107); Glucose 178 mg/dL (74-99); Non-African American GFR(CKD) >90 (>60 ml/min/1.73 sqM); Phosphorus 4.1 mg/dL (2.5-4.5); Potassium 5.2 mmol/L (3.5-5.1); Sodium 137 mmol/L (137-145)
[2020-01-15 02:05] LABS: Carbon Dioxide <5 mmol/L (22-30)
[2020-01-15 02:06] LABS: Glucose,Whole Blood 164 mg/dL (75-99)
[2020-01-15 03:03] LABS: Glucose,Whole Blood 159 mg/dL (75-99)
[2020-01-15 04:12] LABS: Glucose,Whole Blood 159 mg/dL (75-99)
[2020-01-15 05:04] LABS: Glucose,Whole Blood 148 mg/dL (75-99)
[2020-01-15 05:49] LABS: Basophils # (A) 0.1 k/uL (0-0.2); Basophils % (A) 0 %; Eosinophils # (A) 0.1 k/uL (0-0.7); Eosinophils % (A) 1 %; HCT 45.5 % (34.0-46.0); HGB 14.5 gm/dL (11.4-16.0); Hypochromasia Slight; Lymphocytes % (A) 13 %; MCH 29.9 pg (25.0-35.0); MCHC 31.9 g/dL (31.0-37.0); MCV 93.7 fL (80.0-100.0); Mean Platelet Volume 7.8; Monocytes # (A) 0.9 k/uL (0-1.0); Monocytes % (A) 6 %; Neutrophils # (A) 12.5 k/uL (1.3-7.7); Neutrophils % (A) 80 %; Platelet Count 326 k/uL (150-450); RBC 4.85 m/uL (3.80-5.40); WBC 15.8 k/uL (3.8-10.6)
[2020-01-15 05:58] LABS: African American GFR (CKD) >90 (>60 ml/min/1.73 sqM); Anion Gap 14 mmol/L; Blood Urea Nitrogen 7 mg/dL (7-17); Calcium 9.3 mg/dL (8.4-10.2); Carbon Dioxide 11 mmol/L (22-30); Chloride 113 mmol/L (98-107); Glucose 154 mg/dL (74-99); Non-African American GFR(CKD) >90 (>60 ml/min/1.73 sqM); Phosphorus 3.3 mg/dL (2.5-4.5); Potassium 5.2 mmol/L (3.5-5.1); Sodium 138 mmol/L (137-145)
[2020-01-15 06:23] LABS: Glucose,Whole Blood 129 mg/dL (75-99)
[2020-01-15 07:01] LABS: Glucose,Whole Blood 156 mg/dL (75-99)
[2020-01-15 08:01] LABS: Glucose,Whole Blood 143 mg/dL (75-99)
[2020-01-15 09:20] LABS: Glucose,Whole Blood 149 mg/dL (75-99)
[2020-01-15 10:00] LABS: African American GFR (CKD) >90 (>60 ml/min/1.73 sqM); Anion Gap 13 mmol/L; Blood Urea Nitrogen 7 mg/dL (7-17); Calcium 9.3 mg/dL (8.4-10.2); Carbon Dioxide 12 mmol/L (22-30); Chloride 112 mmol/L (98-107); Glucose 172 mg/dL (74-99); Non-African American GFR(CKD) >90 (>60 ml/min/1.73 sqM); Phosphorus 2.8 mg/dL (2.5-4.5); Potassium 4.4 mmol/L (3.5-5.1); Sodium 137 mmol/L (137-145)
[2020-01-15 10:19] LABS: Glucose,Whole Blood 159 mg/dL (75-99)
[2020-01-15 11:31] LABS: Glucose,Whole Blood 173 mg/dL (75-99)
[2020-01-15 11:46] VITALS: BMI 28.5
[2020-01-15] MEDS ORDERED: ONDANSETRON 4 MG/2 ML VIAL IVP PRN (11:54)
[2020-01-15 12:06] LABS: Glucose,Whole Blood 185 mg/dL (75-99)
--- NOTE | 2020-01-15 12:42 | P.CNPUL ---
History of Present Illness Consult date: 01/15/20 Requesting physician: Josep Gruber Reason for consult: other (Acute diabetic ketoacidosis) Chief complaint: Nausea vomiting and diarrhea. History of present illness: This is a 49-year-old female with history of type 2 diabetes, patient is maintained on multiple medications including ozempic , and synjardy. On Wednesday, the patient decided to increase the dose of her ozempic because of elevated blood sugars. And few hours later, the patient developed multiple GI symptoms including nausea vomiting diarrhea and cramping. Patient went on to take her synjardy, in spite of her GI symptoms and possible dehydration. Condition continued to get worse, and over the last few days has been compl aining of GI symptoms as noted above. Patient came into the ER yesterday, she was noted to be tachycardic, dehydrated, she was also noted to have anion gap metabolic acidosis, positive ketones in the urine, and slightly elevated lactic acid. Patient had a CT of the abdomen and pelvis which was basically unremarkable. She was hydrated, admitted to the ICU, and this consult was initiated. Patient is presently on IV fluid at D5 4 5 running at 1 50 mL per hour. She is also on insulin drip at 0.37 units per hour. Follow-up labs this morning showed significant improvement anion gap came down from 25 to 13. Bicarb went up from 6-12. Patient has relatively normal electrolytes, potassium is 4.4, and normal renal profile. Clinically this patient is feeling much better, denies any further GI symptoms since admission to the ICU last night. No further episodes of nausea vomiting or abdominal pain. Her amylase and lipase were normal. ABG on admission showed a pO2 of 115 pCO2 of 20 pH of 7.07 her urine ketones were positive. Urinalysis clearly showed ketonuria and glucosuria and 1+ protein, no evidence of pyuria or hematuria. No evidence of bacteriuria. CT of the abdomen and pelvis showed colonic diverticulosis, no diverticulitis. Review of Systems Constitutional: No fever no chills no weight loss. HEENT: Negative Pulmonary: Negative GI: As noted in HPI. Genitourinary: Negative Musculoskeletal: Negative Neurologic: Negative Endocrine: History of diabetes Hematologic: Negative Skin: Negative Psychiatric: Negative Lymphatics: Negative Past Medical History Past Medical History: Blood Disorder, Diabetes Mellitus Additional Past Medical History / Comment(s): Back Pain, Anemia, gall stones History of Any Multi-Drug Resistant Organisms: MRSA Date of last positivie culture/infection: 12/14/18 MDRO Source:: Nasal Culture Past Surgical History: No Surgical Hx Reported Additional Past Surgical History / Comment(s): ELECTIVE . Patient reports 4 pregnancies resulting in live births this is a fifth Past Anesthesia/Blood Transfusion Reactions: No Reported Reaction Additional Past Anesthesia/Blood Transfusion Reaction / Comment(s): no blood transfusion Past Psychological History: No Psychological Hx Reported Smoking Status: Never smoker Past Alcohol Use History: None Reported Past Drug Use History: None Reported - Past Family History Father Family Medical History: Blood Disorder Additional Family Medical History / Comment(s): father with Anemia, stomach cancer Mother Family Medical History: Diabetes Mellitus, Hypertension Additional Family Medical History / Comment(s): mini strokes Medications and Allergies Home Medications Medication Instructions Recorded Confirmed Type Empagliflozin/Metformin HCl 1 tab PO BID 01/14/20 01/14/20 History [Synjardy 12.5-1,000 mg Tablet] Semaglutide [Ozempic] 1 mg SQ SA 01/14/20 01/14/20 History Allergies Allergy/AdvReac Type Severity Reaction Status Date / Time No Known Allergies Allergy Verified 01/14/20 22:30 Physical Exam Vitals: Vital Signs Temp Pulse Resp BP Pulse Ox 01/15/20 12:00 98.4 F 83 18 104/69 94 L 01/15/20 11:00 89 15 104/69 95 01/15/20 10:00 93 17 123/69 97 01/15/20 09:00 82 16 134/79 96 01/15/20 08:00 97.8 F 82 20 123/58 98 01/15/20 07:00 81 22 133/79 96 01/15/20 06:00 80 14 123/76 97 01/15/20 05:00 74 17 106/96 97 01/15/20 04:00 97.9 F 101 H 15 123/62 98 01/15/20 03:00 100 20 123/68 97 01/15/20 02:00 89 18 118/66 97 01/15/20 01:00 95 19 119/58 97 01/15/20 00:45 96 18 135/75 98 01/15/20 00:30 106 H 15 126/73 97 01/15/20 00:15 102 H 17 125/67 98 01/15/20 00:00 97.4 F L 102 H 20 142/72 99 01/14/20 23:45 100 21 115/100 98 01/14/20 23:30 105 H 22 99 01/14/20 23:15 109 H 25 H 99 01/14/20 22:50 104 H 19 128/70 100 01/14/20 22:30 111 H 24 137/69 100 01/14/20 21:20 98.7 F 115 H 18 119/61 99 Intake and Output 01/14/20 01/15/20 01/15/20 22:59 06:59 14:59 Intake Total 1066.352 751.673 Output Total 750 1050 Balance 316.352 -298.327 Intake: IV 1050 750 Dextrose 5%-0.45% NaCl 1, 1050 750 000 ml @ 150 mls/hr IV . Q6H40M TAMRA Rx#:[id number] Intake, IV Titration 16.352 1.673 Amount Insulin Regular 100 unit 16.352 1.673 In Sodium Chloride 0.9% 100 ml @ 0.075 UNITS/KG/ HR 5.841 mls/hr IV . [id number] TAMRA Rx#:[id number] Output: Urine 750 1050 Other: Voiding Method Bedside Commode Bedside Commode # Voids 0 1 # Bowel Movements 1 Weight 77.111 kg 73.2 kg 73.2 kg Physical Exam: Revealed a 49-year-old female, pleasant, in no distress. Head: Atraumatic, normocephalic. HEENT:[Neck is supple.] [No neck masses.] [No thyromegaly.] [No JVD.] Chest: [Clear throughout, no crackles, no rhonchi, no wheezes.] Cardiac Exam: [Normal S1 and S2, no S3 gallop, no murmur.] Abdomen: [Soft, nontender, no megaly, no rebound, no guarding, normal bowel sounds.] Extremities: [No clubbing, no edema, no cyanosis.] Neurological Exam: [No focal neurologic deficit.], Alert oriented 3 Psychiatric: Normal mood, affect and normal mental status examination. Skin: No rashes. Lymphatics: No cervical lymphadenopathy. Results - Laboratory Findings CBC and BMP: 01/15/20 05:29 01/15/20 09:35 ABG ABG pH 7.07 (7.35-7.45) L* 01/14/20 22:26 ABG pCO2 20 mmHg (35-45) L 01/14/20 22:26 ABG pO2 115 mmHg (83-108) H 01/14/20 22:26 ABG O2 Saturation 98.0 % (94-97) H 01/14/20 22:26 Abnormal lab findings: Abnormal Labs 01/14/20 01/14/20 01/14/20 21:41 21:41 21:41 WBC 17.2 H Hct 48.1 H Neutrophils # 15.2 H ABG pH ABG pCO2 ABG pO2 ABG HCO3 ABG Total CO2 ABG O2 Saturation Potassium 5.3 H Chloride 109 H Carbon Dioxide 6 L* Glucose 171 H POC Glucose (mg/dL) Calcium 10.5 H Total Protein 9.6 H Albumin 5.3 H Urine Protein 1+ H Urine Glucose (UA) 4+ H Urine Ketones 4+ H Urine Blood Trace H Urine Mucus Rare H 01/14/20 01/14/20 01/14/20 22:26 23:07 23:51 WBC Hct Neutrophils # ABG pH 7.07 L* ABG pCO2 20 L ABG pO2 115 H ABG HCO3 6 L* ABG Total CO2 6 L ABG O2 Saturation 98.0 H Potassium Chloride Carbon Dioxide Glucose POC Glucose (mg/dL) 152 H 148 H Calcium Total Protein Albumin Urine Protein Urine Glucose (UA) Urine Ketones Urine Blood Urine Mucus 01/15/20 01/15/20 01/15/20 00:12 00:57 01:41 WBC Hct Neutrophils # ABG pH ABG pCO2 ABG pO2 ABG HCO3 ABG Total CO2 ABG O2 Saturation Potassium 5.7 H 5.2 H Chloride 115 H Carbon Dioxide <5 L* Glucose 178 H POC Glucose (mg/dL) 153 H Calcium Total Protein Albumin Urine Protein Urine Glucose (UA) Urine Ketones Urine Blood Urine Mucus 01/15/20 01/15/20 01/15/20 02:05 03:01 04:09 WBC Hct Neutrophils # ABG pH ABG pCO2 ABG pO2 ABG HCO3 ABG Total CO2 ABG O2 Saturation Potassium Chloride Carbon Dioxide Glucose POC Glucose (mg/dL) 164 H 159 H 159 H Calcium Total Protein Albumin Urine Protein Urine Glucose (UA) Urine Ketones Urine Blood Urine Mucus 01/15/20 01/15/20 01/15/20 05:03 05:29 05:29 WBC 15.8 H Hct Neutrophils # 12.5 H ABG pH ABG pCO2 ABG pO2 ABG HCO3 ABG Total CO2 ABG O2 Saturation Potassium 5.2 H Chloride 113 H Carbon Dioxide 11 L Glucose 154 H POC Glucose (mg/dL) 148 H Calcium Total Protein Albumin Urine Protein Urine Glucose (UA) Urine Ketones Urine Blood Urine Mucus 01/15/20 01/15/20 01/15/20 06:22 07:00 07:59 WBC Hct Neutrophils # ABG pH ABG pCO2 ABG pO2 ABG HCO3 ABG Total CO2 ABG O2 Saturation Potassium Chloride Carbon Dioxide Glucose POC Glucose (mg/dL) 129 H 156 H 143 H Calcium Total Protein Albumin Urine Protein Urine Glucose (UA) Urine Ketones Urine Blood Urine Mucus 01/15/20 01/15/20 01/15/20 09:18 09:35 10:17 WBC Hct Neutrophils # ABG pH ABG pCO2 ABG pO2 ABG HCO3 ABG Total CO2 ABG O2 Saturation Potassium Chloride 112 H Carbon Dioxide 12 L Glucose 172 H POC Glucose (mg/dL) 149 H 159 H Calcium Total Protein Albumin Urine Protein Urine Glucose (UA) Urine Ketones Urine Blood Urine Mucus 01/15/20 01/15/20 11:30 12:05 WBC Hct Neutrophils # ABG pH ABG pCO2 ABG pO2 ABG HCO3 ABG Total CO2 ABG O2 Saturation Potassium Chloride Carbon Dioxide Glucose POC Glucose (mg/dL) 173 H 185 H Calcium Total Protein Albumin Urine Protein Urine Glucose (UA) Urine Ketones Urine Blood Urine Mucus - Diagnostic Findings Additional studies: CT of abdomen and pelvis as noted in HPI. Assessment and Plan Assessment: Impression: Acute diabetic ketoacidosis., This is multifactorial, I believe that's mostly related to her underlying diabetes, and poorly controlled sugars, as well as dehydration with worsening metabolic acidosis secondary to ozempic and synjardy Chronic back pain Acute dehydration. Acute anion gap metabolic acidosis secondary to acute DKA. Recommendation: Continue treatment plan as per protocol. Continue to hold her oral medications for her diabetes. Continue IV fluids and monitor anion gap closely Continue to monitor in the ICU. Possibly switch to subcu insulin in the next 12 hours. Patient will be placed on Accu-Cheks and follow the protocol. We'll continue to follow. Time with Patient: Greater than 30
--- NOTE | 2020-01-15 12:56 | P.HPIM ---
History of Present Illness Gjiejtop-klon-[id number] pleasant female came in was diagnosed with type 2 diabetes mellitus or any other ago in with compensative nausea vomiting multiple episodes, abdominal discomfort has been going on for about 5 days. Patient takes ozempic , and synjardy, sedimentation has metformin . Since her blood sugars are elevated patient started taking increased dose of Ozempic. Patient is found to have severe metabolic acidosis both anion gap and non-anion metabolic acidosis and the head lactic acid of around 2 aphasia and patient is positive with urinary ketones patient received IV fluids patient is presently hyperchloremic blood sugars were not that high anion gap was 25 and she came in yesterday came down to 30 and patient remains in IV insulin drip with D5 half- normal saline. On admission patient patient had pH of 7.07 pCO2 of 20. Patient is feeling much better now Review of Systems REVIEW OF SYSTEMS: CONSTITUTIONAL: No fever, no malaise, no fatigue. HEENT: No recent visual problems or hearing problems. Denied any sore throat. CARDIOVASCULAR: No chest pain, orthopnea, PND, no palpitations, no syncope. PULMONARY: No shortness of breath, no cough, no hemoptysis. GASTROINTESTINAL: As mentioned in HPI NEUROLOGICAL: No headaches, no weakness, no numbness. HEMATOLOGICAL: Denies any bleeding or petechiae. GENITOURINARY: Denies any burning micturition, frequency, or urgency. MUSCULOSKELETAL/RHEUMATOLOGICAL: Denies any joint pain, swelling, or any muscle pain. ENDOCRINE: Denies any polyuria or polydipsia. The rest of the 14-point review of systems is negative. Past Medical History Past Medical History: Blood Disorder, Diabetes Mellitus Additional Past Medical History / Comment(s): Back Pain, Anemia, gall stones History of Any Multi-Drug Resistant Organisms: MRSA Date of last positivie culture/infection: 12/14/18 MDRO Source:: Nasal Culture Past Surgical History: No Surgical Hx Reported Additional Past Surgical History / Comment(s): ELECTIVE . Patient reports 4 pregnancies resulting in live births this is a fifth Past Anesthesia/Blood Transfusion Reactions: No Reported Reaction Additional Past Anesthesia/Blood Transfusion Reaction / Comment(s): no blood transfusion Past Psychological History: No Psychological Hx Reported Smoking Status: Never smoker Past Alcohol Use History: None Reported Past Drug Use History: None Reported - Past Family History Father Family Medical History: Blood Disorder Additional Family Medical History / Comment(s): father with Anemia, stomach cancer Mother Family Medical History: Diabetes Mellitus, Hypertension Additional Family Medical History / Comment(s): mini strokes Medications and Allergies Home Medications Medication Instructions Recorded Confirmed Type Empagliflozin/Metformin HCl 1 tab PO BID 01/14/20 01/14/20 History [Synjardy 12.5-1,000 mg Tablet] Semaglutide [Ozempic] 1 mg SQ SA 01/14/20 01/14/20 History Allergies Allergy/AdvReac Type Severity Reaction Status Date / Time No Known Allergies Allergy Verified 01/14/20 22:30 Physical Exam Vitals: Vital Signs Temp Pulse Resp BP Pulse Ox 01/15/20 12:00 98.4 F 83 18 104/69 94 L 01/15/20 11:00 89 15 104/69 95 01/15/20 10:00 93 17 123/69 97 01/15/20 09:00 82 16 134/79 96 01/15/20 08:00 97.8 F 82 20 123/58 98 01/15/20 07:00 81 22 133/79 96 01/15/20 06:00 80 14 123/76 97 01/15/20 05:00 74 17 106/96 97 01/15/20 04:00 97.9 F 101 H 15 123/62 98 01/15/20 03:00 100 20 123/68 97 01/15/20 02:00 89 18 118/66 97 01/15/20 01:00 95 19 119/58 97 01/15/20 00:45 96 18 135/75 98 01/15/20 00:30 106 H 15 126/73 97 01/15/20 00:15 102 H 17 125/67 98 01/15/20 00:00 97.4 F L 102 H 20 142/72 99 01/14/20 23:45 100 21 115/100 98 01/14/20 23:30 105 H 22 99 01/14/20 23:15 109 H 25 H 99 01/14/20 22:50 104 H 19 128/70 100 01/14/20 22:30 111 H 24 137/69 100 01/14/20 21:20 98.7 F 115 H 18 119/61 99 Intake and Output 01/14/20 01/15/20 01/15/20 22:59 06:59 14:59 Intake Total 1066.352 751.673 Output Total 750 1050 Balance 316.352 -298.327 Intake: IV 1050 750 Dextrose 5%-0.45% NaCl 1, 1050 750 000 ml @ 150 mls/hr IV . Q6H40M [facility] Rx#:[id number] Intake, IV Titration 16.352 1.673 Amount Insulin Regular 100 unit 16.352 1.673 In Sodium Chloride 0.9% 100 ml @ 0.075 UNITS/KG/ HR 5.841 mls/hr IV . [id number] [facility] Rx#:[id number] Output: Urine 750 1050 Other: Voiding Method Bedside Commode Bedside Commode # Voids 0 1 # Bowel Movements 1 Weight 77.111 kg 73.2 kg 73.2 kg PHYSICAL EXAMINATION: GENERAL: The patient is alert and oriented x3, not in any acute distress. Well developed, well nourished. HEENT: Pupils are round and equally reacting to light. EOMI. No scleral icterus. No conjunctival pallor. Normocephalic, atraumatic. No pharyngeal erythema. No thyromegaly. CARDIOVASCULAR: S1 and S2 present. No murmurs, rubs, or gallops. PULMONARY: Chest is clear to auscultation, no wheezing or crackles. ABDOMEN: Soft, nontender, nondistended, normoactive bowel sounds. No palpable organomegaly. MUSCULOSKELETAL: No joint swelling or deformity. EXTREMITIES: No cyanosis, clubbing, or pedal edema. NEUROLOGICAL: Gross neurological examination did not reveal any focal deficits. SKIN: No rashes. Results CBC & Chem 7: 01/15/20 05:29 01/15/20 09:35 Labs: Abnormal Lab Results - Last 24 Hours (Table) 01/14/20 01/14/20 01/14/20 Range/Units 21:41 21:41 21:41 WBC 17.2 H (3.8-10.6) k/uL Hct 48.1 H (34.0-46.0) % Neutrophils # 15.2 H (1.3-7.7) k/uL ABG pH (7.35-7.45) ABG pCO2 (35-45) mmHg ABG pO2 (83-108) mmHg ABG HCO3 (21-25) mmol/L ABG Total CO2 (19-24) mmol/L ABG O2 Saturation (94-97) % Potassium 5.3 H (3.5-5.1) mmol/L Chloride 109 H (98-107) mmol/L Carbon Dioxide 6 L* (22-30) mmol/L Glucose 171 H (74-99) mg/dL POC Glucose (mg/dL) (75-99) mg/dL Calcium 10.5 H (8.4-10.2) mg/dL Total Protein 9.6 H (6.3-8.2) g/dL Albumin 5.3 H (3.5-5.0) g/dL Urine Protein 1+ H (Negative) Urine Glucose (UA) 4+ H (Negative) Urine Ketones 4+ H (Negative) Urine Blood Trace H (Negative) Urine Mucus Rare H (None) /hpf 01/14/20 01/14/20 01/14/20 Range/Units 22:26 23:07 23:51 WBC (3.8-10.6) k/uL Hct (34.0-46.0) % Neutrophils # (1.3-7.7) k/uL ABG pH 7.07 L* (7.35-7.45) ABG pCO2 20 L (35-45) mmHg ABG pO2 115 H (83-108) mmHg ABG HCO3 6 L* (21-25) mmol/L ABG Total CO2 6 L (19-24) mmol/L ABG O2 Saturation 98.0 H (94-97) % Potassium (3.5-5.1) mmol/L Chloride (98-107) mmol/L Carbon Dioxide (22-30) mmol/L Glucose (74-99) mg/dL POC Glucose (mg/dL) 152 H 148 H (75-99) mg/dL Calcium (8.4-10.2) mg/dL Total Protein (6.3-8.2) g/dL Albumin (3.5-5.0) g/dL Urine Protein (Negative) Urine Glucose (UA) (Negative) Urine Ketones (Negative) Urine Blood (Negative) Urine Mucus (None) /hpf 01/15/20 01/15/20 01/15/20 Range/Units 00:12 00:57 01:41 WBC (3.8-10.6) k/uL Hct (34.0-46.0) % Neutrophils # (1.3-7.7) k/uL ABG pH (7.35-7.45) ABG pCO2 (35-45) mmHg ABG pO2 (83-108) mmHg ABG HCO3 (21-25) mmol/L ABG Total CO2 (19-24) mmol/L ABG O2 Saturation (94-97) % Potassium 5.7 H 5.2 H (3.5-5.1) mmol/L Chloride 115 H (98-107) mmol/L Carbon Dioxide <5 L* (22-30) mmol/L Glucose 178 H (74-99) mg/dL POC Glucose (mg/dL) 153 H (75-99) mg/dL Calcium (8.4-10.2) mg/dL Total Protein (6.3-8.2) g/dL Albumin (3.5-5.0) g/dL Urine Protein (Negative) Urine Glucose (UA) (Negative) Urine Ketones (Negative) Urine Blood (Negative) Urine Mucus (None) /hpf 01/15/20 01/15/20 01/15/20 Range/Units 02:05 03:01 04:09 WBC (3.8-10.6) k/uL Hct (34.0-46.0) % Neutrophils # (1.3-7.7) k/uL ABG pH (7.35-7.45) ABG pCO2 (35-45) mmHg ABG pO2 (83-108) mmHg ABG HCO3 (21-25) mmol/L ABG Total CO2 (19-24) mmol/L ABG O2 Saturation (94-97) % Potassium (3.5-5.1) mmol/L Chloride (98-107) mmol/L Carbon Dioxide (22-30) mmol/L Glucose (74-99) mg/dL POC Glucose (mg/dL) 164 H 159 H 159 H (75-99) mg/dL Calcium (8.4-10.2) mg/dL Total Protein (6.3-8.2) g/dL Albumin (3.5-5.0) g/dL Urine Protein (Negative) Urine Glucose (UA) (Negative) Urine Ketones (Negative) Urine Blood (Negative) Urine Mucus (None) /hpf 01/15/20 01/15/20 01/15/20 Range/Units 05:03 05:29 05:29 WBC 15.8 H (3.8-10.6) k/uL Hct (34.0-46.0) % Neutrophils # 12.5 H (1.3-7.7) k/uL ABG pH (7.35-7.45) ABG pCO2 (35-45) mmHg ABG pO2 (83-108) mmHg ABG HCO3 (21-25) mmol/L ABG Total CO2 (19-24) mmol/L ABG O2 Saturation (94-97) % Potassium 5.2 H (3.5-5.1) mmol/L Chloride 113 H (98-107) mmol/L Carbon Dioxide 11 L (22-30) mmol/L Glucose 154 H (74-99) mg/dL POC Glucose (mg/dL) 148 H (75-99) mg/dL Calcium (8.4-10.2) mg/dL Total Protein (6.3-8.2) g/dL Albumin (3.5-5.0) g/dL Urine Protein (Negative) Urine Glucose (UA) (Negative) Urine Ketones (Negative) Urine Blood (Negative) Urine Mucus (None) /hpf 01/15/20 01/15/20 01/15/20 Range/Units 06:22 07:00 07:59 WBC (3.8-10.6) k/uL Hct (34.0-46.0) % Neutrophils # (1.3-7.7) k/uL ABG pH (7.35-7.45) ABG pCO2 (35-45) mmHg ABG pO2 (83-108) mmHg ABG HCO3 (21-25) mmol/L ABG Total CO2 (19-24) mmol/L ABG O2 Saturation (94-97) % Potassium (3.5-5.1) mmol/L Chloride (98-107) mmol/L Carbon Dioxide (22-30) mmol/L Glucose (74-99) mg/dL POC Glucose (mg/dL) 129 H 156 H 143 H (75-99) mg/dL Calcium (8.4-10.2) mg/dL Total Protein (6.3-8.2) g/dL Albumin (3.5-5.0) g/dL Urine Protein (Negative) Urine Glucose (UA) (Negative) Urine Ketones (Negative) Urine Blood (Negative) Urine Mucus (None) /hpf 01/15/20 01/15/20 01/15/20 Range/Units 09:18 09:35 10:17 WBC (3.8-10.6) k/uL Hct (34.0-46.0) % Neutrophils # (1.3-7.7) k/uL ABG pH (7.35-7.45) ABG pCO2 (35-45) mmHg ABG pO2 (83-108) mmHg ABG HCO3 (21-25) mmol/L ABG Total CO2 (19-24) mmol/L ABG O2 Saturation (94-97) % Potassium (3.5-5.1) mmol/L Chloride 112 H (98-107) mmol/L Carbon Dioxide 12 L (22-30) mmol/L Glucose 172 H (74-99) mg/dL POC Glucose (mg/dL) 149 H 159 H (75-99) mg/dL Calcium (8.4-10.2) mg/dL Total Protein (6.3-8.2) g/dL Albumin (3.5-5.0) g/dL Urine Protein (Negative) Urine Glucose (UA) (Negative) Urine Ketones (Negative) Urine Blood (Negative) Urine Mucus (None) /hpf 01/15/20 01/15/20 Range/Units 11:30 12:05 WBC (3.8-10.6) k/uL Hct (34.0-46.0) % Neutrophils # (1.3-7.7) k/uL ABG pH (7.35-7.45) ABG pCO2 (35-45) mmHg ABG pO2 (83-108) mmHg ABG HCO3 (21-25) mmol/L ABG Total CO2 (19-24) mmol/L ABG O2 Saturation (94-97) % Potassium (3.5-5.1) mmol/L Chloride (98-107) mmol/L Carbon Dioxide (22-30) mmol/L Glucose (74-99) mg/dL POC Glucose (mg/dL) 173 H 185 H (75-99) mg/dL Calcium (8.4-10.2) mg/dL Total Protein (6.3-8.2) g/dL Albumin (3.5-5.0) g/dL Urine Protein (Negative) Urine Glucose (UA) (Negative) Urine Ketones (Negative) Urine Blood (Negative) Urine Mucus (None) /hpf Thrombosis Risk Factor Assmnt - Choose All That Apply Each Factor Represents 1 point: Age 41-60 years Other Risk Factors: No Thrombosis Risk Factor Assessment Total Risk Factor Score: 1 Thrombosis Risk Factor Assessment Level: Low Risk Assessment and Plan Plan: -Metabolic acidosis patient has both anion gap and non-and gap and bulk acidosis anion gap metabolic acidosis is secondary to lactic acidosis from metformin and dehydration along with the diabetic acidosis. This is being treated for with DKA protocol D5 half-normal with insulin and his anion gap resolves after which patient was started on long-acting insulin and sliding scale with each meal. Noniron gap and watch acidosis is secondary to hyperchloremia from IV fluids. Patient had some respiratory compensation -Nausea vomiting abdominal discomfort secondary to metabolic acidosis -Dehydration: IV fluids as mentioned above -Type 2 diabetes mellitus with insulin deficiency patient probably will require insulin to avoid the scan of episodes in for diabetes mellitus. GI prophylaxis with Protonix and due to prophylaxis early ambulation
[2020-01-15 13:08] LABS: Glucose,Whole Blood 241 mg/dL (75-99)
[2020-01-15] MEDS: PANTOPRAZOLE 40 MG/10 ML VIAL IVP SCH (13:14)
[2020-01-15] MEDS: SODIUM CHLORIDE 0.45% 1,000 ML IV SCH (13:15)
[2020-01-15 13:59] LABS: African American GFR (CKD) >90 (>60 ml/min/1.73 sqM); Anion Gap 11 mmol/L; Blood Urea Nitrogen 5 mg/dL (7-17); Calcium 9.4 mg/dL (8.4-10.2); Carbon Dioxide 12 mmol/L (22-30); Chloride 112 mmol/L (98-107); Glucose 217 mg/dL (74-99); Non-African American GFR(CKD) >90 (>60 ml/min/1.73 sqM); Phosphorus 2.5 mg/dL (2.5-4.5); Sodium 135 mmol/L (137-145)
[2020-01-15 14:01] LABS: Potassium 4.1 mmol/L (3.5-5.1)
[2020-01-15 14:27] LABS: Glucose,Whole Blood 171 mg/dL (75-99)
[2020-01-15] MEDS ORDERED: INSULIN DETEMIR (LEVEMIR) 100 UNIT/ML SYR SQ ONE (14:41)
[2020-01-15 17:07] LABS: Glucose,Whole Blood 138 mg/dL (75-99)
[2020-01-15] MEDS: INSULIN ASPART (NovoLOG) 100 UNIT/ML VIAL SQ SCH ×2 (17:10→20:08)
[2020-01-15 20:05] LABS: Glucose,Whole Blood 174 mg/dL (75-99)
[2020-01-16] MEDS: SODIUM CHLORIDE 0.45% 1,000 ML IV SCH ×2 (00:38→09:49)
[2020-01-16 03:50] LABS: HCT 41.9 % (34.0-46.0); HGB 13.6 gm/dL (11.4-16.0); MCH 29.2 pg (25.0-35.0); MCHC 32.5 g/dL (31.0-37.0); Mean Platelet Volume 7.7; Platelet Count 271 k/uL (150-450); RBC 4.66 m/uL (3.80-5.40); WBC 8.2 k/uL (3.8-10.6)
[2020-01-16 04:01] LABS: African American GFR (CKD) >90 (>60 ml/min/1.73 sqM); Anion Gap 10 mmol/L; Blood Urea Nitrogen 4 mg/dL (7-17); Calcium 9.4 mg/dL (8.4-10.2); Carbon Dioxide 18 mmol/L (22-30); Chloride 109 mmol/L (98-107); Glucose 140 mg/dL (74-99); Non-African American GFR(CKD) >90 (>60 ml/min/1.73 sqM); Phosphorus 2.2 mg/dL (2.5-4.5); Potassium 3.3 mmol/L (3.5-5.1); Sodium 137 mmol/L (137-145)
[2020-01-16] MEDS ORDERED: Potassium Replacement Protocol 1 EACH MISC MISCELLANE PRN (05:00)
[2020-01-16] MEDS: POTASSIUM CHLORIDE ER 20 MEQ TAB.ER PO SCH ×2 (06:41→09:49)
[2020-01-16 06:48] LABS: Glucose,Whole Blood 124 mg/dL (75-99)
[2020-01-16 06:51] VITALS: TEMP 97.5
[2020-01-16] MEDS: INSULIN ASPART (NovoLOG) 100 UNIT/ML VIAL SQ SCH ×2 (06:54→12:37)
[2020-01-16] MEDS: PANTOPRAZOLE 40 MG/10 ML VIAL IVP SCH (09:49)
--- NOTE | 2020-01-16 12:13 | P.PN ---
Subjective Progress Note Date: 01/16/20 Principal diagnosis: Acute diabetic ketoacidosis This is a 49-year-old female with history of type 2 diabetes, patient is maintained on multiple medications including ozempic , and synjardy. On Wednesday, the patient decided to increase the dose of her ozempic because of elevated blood sugars. And few hours later, the patient developed multiple GI symptoms including nausea vomiting diarrhea and cramping. Patient went on to take her synjardy, in spite of her GI symptoms and possible dehydration. Condition continued to get worse, and over the last few days has been compl aining of GI symptoms as noted above. Patient came into the ER yesterday, she was noted to be tachycardic, dehydrated, she was also noted to have anion gap metabolic acidosis, positive ketones in the urine, and slightly elevated lactic acid. Patient had a CT of the abdomen and pelvis which was basically unremarkable. She was hydrated, admitted to the ICU, and this consult was initiated. Patient is presently on IV fluid at D5 4 5 running at 1 50 mL per hour. She is also on insulin drip at 0.37 units per hour. Follow-up labs this morning showed significant improvement anion gap came down from 25 to 13. Bicarb went up from 6-12. Patient has relatively normal electrolytes, potassium is 4.4, and normal renal profile. Clinically this patient is feeling much better, denies any further GI symptoms since admission to the ICU last night. No further episodes of nausea vomiting or abdominal pain. Her amylase and lipase were normal. ABG on admission showed a pO2 of 115 pCO2 of 20 pH of 7.07 her urine ketones were positive. Urinalysis clearly showed ketonuria and glucosuria and 1+ protein, no evidence of pyuria or hematuria. No evidence of bacteriuria. CT of the abdomen and pelvis showed colonic diverticulosis, no diverticulitis. Patient was reevaluated today on 01/16/20, patient remains in the ICU as an overflow. She is basically asymptomatic. She feels much better, she is on room air. IV fluid is 0.45 at 100 MLS per hour. Anion gap has completely closed, bicarb is 18. Patient is again asymptomatic. No nausea no vomiting no abdominal pain no diarrhea. And she is again on room air Objective - Vital Signs Vital signs: Vital Signs Temp 97.5 F L 01/16/20 06:49 Pulse 85 01/16/20 06:49 Resp 14 01/16/20 06:49 BP 124/74 01/16/20 06:49 Pulse Ox 98 01/16/20 06:49 Intake & Output 01/15/20 01/16/20 01/16/20 18:59 06:59 18:59 Intake Total 8402.425 0349 Output Total 1900 450 Balance -472.369 3672 Weight 73.2 kg Intake: IV 900 1100 Dextrose 5%-0.45% NaCl 1, 900 1100 000 ml @ 150 mls/hr IV . Q6H40M [facility] Rx#:[id number] Intake, IV Titration 402.750 300 Amount Insulin Regular 100 unit 2.750 In Sodium Chloride 0.9% 100 ml @ 0.075 UNITS/KG/ HR 5.841 mls/hr IV . [id number] [facility] Rx#:[id number] Sodium Chloride 0.45% 1, 400 300 000 ml @ 100 mls/hr IV . Q10H [facility] Rx#:[id number] Oral 200 200 Output: Urine 1900 450 Other: Voiding Method Bedside Commode Bedside Commode # Voids 1 1 # Bowel Movements 1 1 - Exam Physical Exam: Revealed a 49-year-old female, pleasant, in no distress. On room air. Head: Atraumatic, normocephalic. HEENT:[Neck is supple.] [No neck masses.] [No thyromegaly.] [No JVD.] Chest: [Clear throughout, no crackles, no rhonchi, no wheezes.] Cardiac Exam: [Normal S1 and S2, no S3 gallop, no murmur.] Abdomen: [Soft, nontender, no megaly, no rebound, no guarding, normal bowel sounds.] Extremities: [No clubbing, no edema, no cyanosis.] Neurological Exam: [No focal neurologic deficit.], Alert oriented 3 Psychiatric: Normal mood, affect and normal mental status examination. Skin: No rashes. - Labs CBC & Chem 7: 01/16/20 03:32 01/16/20 03:32 Labs: Abnormal Lab Results - Last 24 Hours (Table) 01/15/20 01/15/20 01/15/20 Range/Units 05:29 13:06 13:37 Sodium 135 L (137-145) mmol/L Potassium (3.5-5.1) mmol/L Chloride 112 H (98-107) mmol/L Carbon Dioxide 12 L (22-30) mmol/L BUN 5 L (7-17) mg/dL Creatinine 0.50 L (0.52-1.04) mg/dL Glucose 217 H (74-99) mg/dL POC Glucose (mg/dL) 241 H (75-99) mg/dL Hemoglobin A1c 12.0 H (4.0-6.0) % Phosphorus (2.5-4.5) mg/dL 01/15/20 01/15/20 01/15/20 Range/Units 14:26 17:05 20:03 Sodium (137-145) mmol/L Potassium (3.5-5.1) mmol/L Chloride (98-107) mmol/L Carbon Dioxide (22-30) mmol/L BUN (7-17) mg/dL Creatinine (0.52-1.04) mg/dL Glucose (74-99) mg/dL POC Glucose (mg/dL) 171 H 138 H 174 H (75-99) mg/dL Hemoglobin A1c (4.0-6.0) % Phosphorus (2.5-4.5) mg/dL 01/16/20 01/16/20 Range/Units 03:32 06:47 Sodium (137-145) mmol/L Potassium 3.3 L (3.5-5.1) mmol/L Chloride 109 H (98-107) mmol/L Carbon Dioxide 18 L (22-30) mmol/L BUN 4 L (7-17) mg/dL Creatinine 0.48 L (0.52-1.04) mg/dL Glucose 140 H (74-99) mg/dL POC Glucose (mg/dL) 124 H (75-99) mg/dL Hemoglobin A1c (4.0-6.0) % Phosphorus 2.2 L (2.5-4.5) mg/dL Assessment and Plan Assessment: Impression: Acute diabetic ketoacidosis., This is multifactorial, I believe that's mostly related to her underlying diabetes, and poorly controlled sugars, as well as dehydration with worsening metabolic acidosis secondary to ozempic and synjardy Chronic back pain Acute dehydration. Acute anion gap metabolic acidosis secondary to acute DKA. Recommendation: Discontinue IV fluid Placed on subcu insulin. I would recommend holding her oral meds for diabetes, until she follows up with her primary care physician. Or cell plasterer. Consider discharge planning today. Cleared from our perspective Time with Patient: Less than 30
[2020-01-16 12:32] LABS: Glucose,Whole Blood 118 mg/dL (75-99)
[2020-01-16 12:36] VITALS: BP 116/73; PULSE 99; RESP 18
--- NOTE | 2020-01-16 16:24 | P.DS ---
Providers Date of admission: 01/14/20 22:57 Attending physician: Josep Gruber Consults: 01/14/20 22:57 Consult Physician Urgent Consulting Provider: Heath Chand Consult Reason/Comments: ketoacidosis, vomiting Do you want consulting provider notified?: Already Contacted Primary care physician: Tata [facility] Course: [id number] female came in was diagnosed with type 2 diabetes mellitus or any other ago in with compensative nausea vomiting multiple episodes, abdominal discomfort has been going on for about 5 days. Patient takes ozempic , and synjardy, sedimentation has metformin . Since her blood sugars are elevated patient started taking increased dose of Ozempic. Patient is found to have severe metabolic acidosis both anion gap and non-anion metabolic acidosis and the head lactic acid of around 2 aphasia and patient is positive with urinary ketones patient received IV fluids patient is presently hyperchloremic blood sugars were not that high anion gap was 25 and she came in yesterday came down to 30 and patient remains in IV insulin drip with D5 half-normal saline. On admission patient patient had pH of 7.07 pCO2 of 20. Patient is feeling much better now 01/16/2020 Patient's acidosis resolved and patient blood sugars are very well within control still has some noniron gap metabolic is doses from hyperchloremia. Patient will be discharged today on long-acting insulin along with pre-meal insulin sliding scale. Patient will follow with PCP and endocrinology as an outpatient. PHYSICAL EXAMINATION: GENERAL: The patient is alert and oriented x3, not in any acute distress. Well developed, well nourished. HEENT: Pupils are round and equally reacting to light. EOMI. No scleral icterus. No conjunctival pallor. Normocephalic, atraumatic. No pharyngeal erythema. No thyromegaly. CARDIOVASCULAR: S1 and S2 present. No murmurs, rubs, or gallops. PULMONARY: Chest is clear to auscultation, no wheezing or crackles. ABDOMEN: Soft, nontender, nondistended, normoactive bowel sounds. No palpable organomegaly. MUSCULOSKELETAL: No joint swelling or deformity. EXTREMITIES: No cyanosis, clubbing, or pedal edema. NEUROLOGICAL: Gross neurological examination did not reveal any focal deficits. SKIN: No rashes. Assessment and Plan Plan: -Metabolic acidosis patient has both anion gap and non-anion gap Regina acidosis anion gap metabolic acidosis is secondary to lactic acidosis from metformin and dehydration along with the diabetic keto acidosis. was treated with with DKA protocol -Nausea vomiting abdominal discomfort secondary to metabolic acidosis -Dehydration: IV fluids as mentioned above -Type 2 diabetes mellitus with insulin deficiency patient probably will require insulin to avoid further episodes off DKA GI prophylaxis with Protonix and due to prophylaxis early ambulation Patient Condition at Discharge: Serious Plan - Discharge Summary New Discharge Prescriptions: New INSULIN LISPRO (humaLOG) [humaLOG] 1 injection SQ DIRECTED #10 ml Insulin Glargine,Hum.rec.anlog [Lantus Solostar] 15 unit SQ HS #2 pen Famotidine [Pepcid] 20 mg PO BID #30 tablet Discontinued Semaglutide [Ozempic] 1 mg SQ SA Empagliflozin/Metformin HCl [Synjardy 12.5-1,000 mg Tablet] 1 tab PO BID Discharge Medication List Famotidine [Pepcid] 20 mg PO BID #30 tablet 01/16/20 [Rx] INSULIN LISPRO (humaLOG) [humaLOG] 1 injection SQ DIRECTED #10 ml 01/16/20 [Rx] Insulin Glargine,Hum.rec.anlog [Lantus Solostar] 15 unit SQ HS #2 pen 01/16/20 [Rx] Follow up Appointment(s)/Referral(s): Beau Gardner MD [REFERRING] - 1 Week Tata Lambert DO [Primary Care Provider] - 01/19/20 10:40 am Patient Instructions/Handouts: Diabetic Ketoacidosis (DC), Type 2 Diabetes Management for Adults (DC) Discharge Disposition: HOME SELF-CARE
== END 2020-01-16 14:51 | disposition home or self-care (01) | DRG 639 ==
LOC: EC 21:06 → 2SICU 22:57
PROVIDERS: ADMIT Hospitalist; ATTEND Hospitalist
DX: E11.10 Type 2 diabetes mellitus with ketoacidosis without coma (principal); E86.0 Dehydration; E87.8 Other disorders of electrolyte and fluid balance, not elsewhere classified; G89.29 Other chronic pain; K57.30 Diverticulosis of large intestine without perforation or abscess without bleeding; M54.9 Dorsalgia, unspecified; Z80.0 Family history of malignant neoplasm of digestive organs; Z82.3 Family history of stroke; Z82.49 Family history of ischemic heart disease and other diseases of the circulatory system; Z83.3 Family history of diabetes mellitus; Z86.14 Personal history of Methicillin resistant Staphylococcus aureus infection; Z83.2 Family history of diseases of the blood and blood-forming organs and certain disorders involving the immune mechanism; Z79.4 Long term (current) use of insulin
CPT/HCPCS: 36415; 36600; 74022; 74177; 80048; 80051; 80053; 81001; 81003; 82009; 82150; 82272; 82565; 82805; 82947; 83036; 83605; 83690; 84100; 84132; 84520; 85025; 85027; 93005; 96361; 96374; 96375; 99284; 99285